=== PATIENT | female | born 1995 | race American Indian/Alaskan Native ===

== ENCOUNTER 2018-04-12 11:17 | Outpatient (CLI) | payer BC | END 2018-04-12 12:25 | disposition home or self-care (01) | LOC: TRG 11:17 | CPT/HCPCS: 59025 ==

== ENCOUNTER 2018-04-13 08:17 | Outpatient (CLI) | payer BC | END 2018-04-13 11:30 | disposition home or self-care (01) | LOC: TRG 08:17 | CPT/HCPCS: 59025 ==

== ENCOUNTER 2018-04-15 06:09 | Inpatient (IN) | payer BC ==
[2018-04-15] MEDS ORDERED: BRETHINE IVP PRN (06:59)
[2018-04-15] MEDS ORDERED: XYLOCAINE 2% INFILTRATI ONE (06:59)
[2018-04-15] MEDS ORDERED: BRETHINE SUB-Q PRN (06:59)
[2018-04-15] MEDS ORDERED: MINERAL OIL PO PRN (06:59)
[2018-04-15] MEDS ORDERED: PITOCin/NS 20 UNIT/1000ML DRIP 20 UNITS/1,000 ML BAG IV SCH (07:00)
[2018-04-15] MEDS: LACTATED RINGERS 1,000 ML IV SCH ×5 (08:15→23:33)
[2018-04-15 08:49] LABS: Hematocrit 32.8 % (30.3-42.9); Hemoglobin 10.6 gm/dl (10.1-14.3); Mean Corpuscular HGB Conc 33 % (30-34); Mean Corpuscular Volume 79 fl (79-97); Platelet Count 248 K/mm3 (140-440); Red Blood Count 4.14 M/mm3 (3.65-5.03); Red Cell Distribution Width 16.1 % (13.2-15.2)
[2018-04-15] MEDS: SUBLIMAZE IV PRN ×2 (08:53→13:54)
--- NOTE | 2018-04-15 10:24 | History and Physical Report ---
History of Present Illness Date of examination: 04/15/18 Date of admission: 04/15/18 07:39 Chief complaint: I'm jimmy History of present illness: Pt is a 23 year old who presents in active labor at 40.6 weeks gestation. Patient has had an uncomplicated course. All labs are negative. Past History Past Medical History: no pertinent history Past Surgical History: no surgical history Social history: single - Obstetrical History Expected Date of Delivery: 04/09/18 Actual Gestation: 40 Week(s) 6 Day(s) : 1 Medications and Allergies Allergies Allergy/AdvReac Type Severity Reaction Status Date / Time shrimp Allergy Severe Anaphylaxis Verified 04/15/18 06:46 Home Medications Medication Instructions Recorded Confirmed Last Taken Type Pnv No.95/Ferrous Fum/Folic AC 1 each PO DAILY 04/13/18 04/13/18 Unknown History [Prenavite Tablet] Active Meds: Active Medications Ephedrine Sulfate (Ephedrine Sulfate) 10 mg IV Q2M PRN PRN Reason: Hypotension Fentanyl (Sublimaze) 100 mcg IV Q2H PRN PRN Reason: Labor Pain Last Admin: 04/15/18 08:53 Dose: 100 mcg Documented by: Lactated Ringer's (Lactated Ringers) 1,000 mls @ 125 mls/hr IV DIRECT PATRICIA Last Admin: 04/15/18 08:15 Dose: 125 mls/hr Documented by: Oxytocin/Sodium Chloride (Pitocin/Ns 20 Unit/1000ml Drip) 20 units in 1,000 mls @ 125 mls/hr IV DIRECT PATRICIA Mineral Oil (Mineral Oil) 30 ml PO QHS PRN PRN Reason: Constipation Terbutaline Sulfate (Brethine) 0.25 mg SUB-Q ONCE PRN PRN Reason: Hyperstimulation/Hypertonicity Terbutaline Sulfate (Brethine) 0.25 mg IVP ONCE PRN PRN Reason: Hyperstimulation/Hypertonicity Review of Systems All systems: negative Genitourinary: pelvic pain, contractions Rectal Exam: deferred - Vital Signs Vital signs: Vital Signs Pulse BP 78 121/66 04/15/18 06:22 04/15/18 06:22 Temp Pulse Resp BP Pulse Ox 98.2 F 93 H 22 137/84 04/15/18 09:20 04/15/18 10:02 04/15/18 09:20 04/15/18 10:02 - Physical Exam Breasts: Positive: deferred Cardiovascular: Regular rate, Normal S1, Normal S2 Lungs: Positive: Clear to auscultation, Normal air movement Abdomen: Positive: normal appearance, soft, normal bowel sounds. Negative: distention, tenderness Vulva: both: normal Vagina: Positive: normal moisture. Negative: discharge Cervix: Negative: lesion, discharge Uterus: Positive: normal size, normal contour Adnexa: both: normal Anus/Rectum: Positive: normal perianal skin, heme negative. Negative: rectal mass, hemorrhoids Extremities: Deep Tendon Reflex Grade: Normal +2 - Obstetrical FHR: auscultation normal Cervical Dilatation: 4 Cervical Effacement Percentage: 90 station: -1 Uterine Contraction Pattern: Regular Uterine Tone Measurement Phase: Contraction Uterine Contraction Intensity: Strong/Firm Results Result Diagrams: 04/15/18 08:15 Abnormal lab results 04/15/18 Range/Units 08:15 MCH 26 L (28-32) pg RDW 16.1 H (13.2-15.2) % All other labs normal. Assessment and Plan IUP at 40.6 weeks in labor. Admit for same. Patient has expectation of all na tural . She does not want epidural. Anticipate .
--- NOTE | 2018-04-15 19:31 | Anesthesia Consultation ---
Anesthesia Consult and Med Hx - Airway Anesthetic Teeth Evaluation: Good, Partials ROM Head & Neck: Adequate Mallampati Class: Class II Intubation Access Assessment: Probably Good - Pulmonary Exam CTA: Yes - Cardiac Exam Cardiac Exam: RRR - Pre-Operative Health Status ASA Pre-Surgery Classification: ASA2 Proposed Anesthetic Plan: Epidural - Pulmonary Hx Smoking: No Hx Asthma: No Hx Respiratory Symptoms: No SOB: No COPD: No Home Oxygen Therapy: No Hx Pneumonia: No Hx Sleep Apnea: No - Cardiovascular System Hx Hypertension: No Hx Coronary Artery Disease: No Hx Heart Attack/AMI: No Hx Angina: No Hx Percutaneous Transluminal Coronary Angioplasty (PTCA): No Hx Cardia Arrhythmia: No Hx Pacemaker: No Hx Internal Defibrillator: No Hx Valvular Heart Disease: No Hx Heart Murmur: No Hx Peripheral Vascular Disease: No - Central Nervous System Hx Neuromuscular Disorder: No Hx Seizures: No CVA: No Hx Back Pain: No Hx Psychiatric Problems: No - Gastrointestinal Hx Ulcer: No Hx Gastroesophageal Reflux Disease: No - Endocrine Hx Renal Disease: No Hx End Stage Renal Disease: No Hx Cirrhosis: No Hx Liver Disease: No Hx Insulin Dependent Diabetes: No Hx Non-Insulin Dependent Diabetes: No Hx Thyroid Disease: No Hx Hypothyroidism: No Hx Hyperthyroidism: No - Hematic Hx Anemia: No Hx Sickle Cell Disease: No - Other Systems Hx Alcohol Use: No Hx Substance Use: No Hx Cancer: No Hx Obesity: No
--- NOTE | 2018-04-15 19:31 | Anesthesia Day of Surgery ---
Anesthesia Day of Surgery - Day of Surgery Patient Examined: Yes Patient H&P Reviewed: Yes Patient is NPO: Yes Beta Blockers: No Cardiac Clearance: No Pulmonary Clearance: No Ian's Test: N/A
[2018-04-15] MEDS ORDERED: NARCAN 2 MG/2 ML IV PRN (19:32)
[2018-04-15] MEDS ORDERED: MARCAINE 0.25% INFILTRATI ONE (19:50)
[2018-04-15] MEDS ORDERED: fentaNYL-BUPIV 2 MCG/ML-0.125% 200 MCG/100 ML BAG EPIDURAL SCH (20:00)
--- NOTE | 2018-04-15 23:10 | Event Note ---
Date: 04/15/18 Patient decided to get epidural. REceived at approximately 2000. Cervical exam at 2300 9/100/+1 station. Will begin pitocin. Still anticipate .
[2018-04-15] MEDS ORDERED: ZOFRAN IV ONE (23:26)
[2018-04-15] MEDS ORDERED: PITOCin/NS 30 UNIT/500ML 30 UNITS/500 ML BAG IV SCH (23:45)
--- NOTE | 2018-04-16 05:43 | Post Anesthesia Evaluation ---
- Post Anesthesia Evaluation Patient Participated: Yes Airway Patent: Yes Stable Respiratory Function: Yes Nausea/Vomiting: No Temp > 96.8F: Yes Pain Manageable: Yes Adequeate Hydration: Yes Anesthesia Complications: No Block Receding Appropriately: Yes Patient on Ventilator: No
--- NOTE | 2018-04-16 06:08 | Procedure Note ---
OB Delivery Note - Delivery Date of Delivery: 04/16/18 Surgeon: YOLI MARIO Estimated blood loss: 300cc - Vaginal Delivery presentation: vertex Delivery position: OA Intrapartum events: meconium, prolonged labor- > = 20hr Delivery augmentation: rupture of membranes Delivery monitor: external FHT, external uterine Route of delivery: Delivery placenta: spontaneous Delivery cord: 3 umbilical vessels Episiotomy: none Delivery laceration: 2nd degree Delivery repair: vicryl Anesthesia: epidural Delivery comments: viable male delivered over intact perineum with thick meconium at 510. Loose nuchal easily reduced. Cord clamped and cut and infant handed to waiting NICU personnel. apgars 2/9. Weight 8 pounds 15 ounces. Placenta delivered spontaneously and intact with 3vc. Laceration repaired with 2.0 vicryl. Patient tolerated procedure well. - A at 1 minute: 8 at 5 minutes: 9 Gender: Male
[2018-04-16] MEDS: SUBLIMAZE IV PRN (06:42)
[2018-04-16] MEDS ORDERED: PHENERGAN PR PRN (09:30)
[2018-04-16] MEDS ORDERED: TYLENOL PO PRN (09:30)
[2018-04-16] MEDS ORDERED: TUCKS PAD TP PRN (09:30)
[2018-04-16] MEDS ORDERED: ZOFRAN IV PRN (09:30)
[2018-04-16] MEDS ORDERED: NORCO 5/325 PO PRN (09:30)
[2018-04-16] MEDS ORDERED: SODIUM CHLORIDE FLUSH SYRINGE 10 ML IV PRN (09:30)
[2018-04-16] MEDS ORDERED: BENADRYL PO PRN (09:30)
[2018-04-16] MEDS ORDERED: PHENERGAN PO PRN (09:30)
[2018-04-16] MEDS ORDERED: LANSINOH TP PRN (10:00)
[2018-04-16] MEDS ORDERED: DULCOLAX PR PRN (10:00)
[2018-04-16] MEDS: IBUPROFEN PO SCH ×2 (10:58→22:45)
[2018-04-16] MEDS: COLACE PO SCH ×2 (10:58→22:43)
[2018-04-16] MEDS: PRENATAL VITAMIN PO SCH (10:59)
[2018-04-16 20:48] LABS: Hematocrit 29.1 % (30.3-42.9); Hemoglobin 9.2 gm/dl (10.1-14.3)
[2018-04-16] MEDS ORDERED: MILK OF MAGNESIA PO PRN (22:00)
[2018-04-17] MEDS: IBUPROFEN PO SCH ×2 (05:52→23:49)
[2018-04-17] MEDS: COLACE PO SCH (23:50)
[2018-04-18] MEDS: IBUPROFEN PO SCH (06:17)
--- NOTE | 2018-04-18 09:38 | Progress Note ---
Assessment and Plan PPD 2 s/p . Doing well. Plan for discharge on today. Subjective - Subjective Date of service: 04/18/18 Interval history: Pt is a 23 year old who presents in active labor at 40.6 weeks gestation. Patient has had an uncomplicated course. All labs are negative. Patient reports: appetite normal, voiding normally, pain well controlled, ambulating normally : doing well Objective - Vital Signs Latest vital signs: Vital Signs Temp Pulse Resp BP Pulse Ox 04/18/18 02:35 98.5 F 72 20 101/51 99 04/17/18 17:03 97.7 F 97 H 20 132/64 99 Intake and Output 04/17/18 04/18/18 04/18/18 22:59 06:59 14:59 Intake Total 240 240 Balance 240 240 Intake: Oral 240 240 Other: Total, Intake Amount 240 240 # Voids Void 1 1 - Exam Cardiovascular: Present: Regular rate, Normal S1, Normal S2 Lungs: Present: Clear to auscultation, Normal air movement Abdomen: Present: normal appearance, soft Uterus: Present: normal, firm Extremities: Present: normal
--- NOTE | 2018-04-18 09:39 | Discharge Summary ---
Providers - Providers Date of Admission: 04/15/18 07:39 Date of discharge: 04/18/18 Attending physician: YOLI MARIO Primary care physician: YOLI MARIO Hospitalization Reason for admission: active labor, rupture of membranes Delivery: Episiotomy: none Laceration: none complications: none Discharge diagnosis: IUP at term delivered [place] baby: male Hospital course: unremarkable Condition at discharge: Good Disposition: DC-01 TO HOME OR SELFCARE Plan - Discharge Medications Prescriptions: Ibuprofen [Motrin] 800 mg PO Q8HR PRN #40 tablet PRN Reason: Pain, Moderate (4-6) HYDROcodone/ACETAMINOPHEN [Mayo 5-325 Tablet] 1 each PO Q6H #20 tablet - Provider Discharge Summary Activity: routine, no sex for 6 weeks, no heavy lifting 4 weeks, no strenuous exercise Diet: routine Instructions: routine Additional instructions: [] Smoking cessation referral if applicable(refer to patient education folder for contact #) [] Refer to [facility]'s [facility] Booklet Call your doctor immediately for: * Fever > 100.5 * Heavy vaginal bleeding ( >1 pad per hour) * Severe persistent headache * Shortness of breath * Reddened, hot, painful area to leg or breast * Drainage or odor from incision. * Keep incision clean and dry at all times and follow doctor's instructions regarding bathing/showering - Follow up plan Follow up: YOLI MARIO MD [Primary Care Provider] - 6 Weeks
[2018-04-18] MEDS: PRENATAL VITAMIN PO SCH (10:26)
[2018-04-18] MEDS: COLACE PO SCH (10:27)
[2018-04-18 13:39] VITALS: BP 112/68
== END 2018-04-18 13:00 | disposition home or self-care (01) | DRG 806 ==
LOC: TRG 06:09 → LD 07:39 → OB 04-16 08:43
PROVIDERS: ADMIT Obstetrics & Gynecology; ATTEND Obstetrics & Gynecology
PROC: 10E0XZZ Delivery of Products of Conception, External Approach (ICD-10-PCS; principal; 2018-04-16)
PROC: 0KQM0ZZ Repair Perineum Muscle, Open Approach (ICD-10-PCS; 2018-04-16)
PROC: 3E0R3BZ Introduction of Anesthetic Agent into Spinal Canal, Percutaneous Approach (ICD-10-PCS; 2018-04-16)
PROC: 00HU33Z Insertion of Infusion Device into Spinal Canal, Percutaneous Approach (ICD-10-PCS; 2018-04-16)
DX: O77.0 Labor and delivery complicated by meconium in amniotic fluid (principal); O63.9 Long labor, unspecified; Z37.0 Single live birth; O69.1XX0 Labor and delivery complicated by cord around neck, with compression, not applicable or unspecified; O70.1 Second degree perineal laceration during delivery; Z3A.40 40 weeks gestation of pregnancy
CPT/HCPCS: 36415; 85014; 85018; 85027; 86592; 86850; 86900; 86901; G0378; J2405; J2590; J3010; J7120